=== PATIENT | female | born 1975 ===

== ENCOUNTER 2020-06-22 09:35 | Inpatient (IN) | payer MEDICAID ==
[~2020-06-22] VITALS: Ht 170.2 cm; Wt 89.0 kg
--- NOTE | 2020-06-22 10:01 | NUR ---
THIS IS A 45 YR OPLD FEMALE BEING TRANSFERED FROM [facility] FOR ELEVATED TROP ON A COVID POS PT. PT HAD COVID POS TEST IN LATE APRIL PT WENT INTO THEIR FACILITY TO DETOX FROM ETOH. 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 PT HX OF HTN AND ETOH ABUSE AND LIVER CIRRHOSIS.
[2020-06-22] MEDS ORDERED: ONDANSETRON 2MG/ML, 2ML ONE (10:15)
[2020-06-22] MEDS ORDERED: LORazepam 2 MG/ML, 1ML ONE (10:16)
--- NOTE | 2020-06-22 10:22 | NUR ---
X RAY IN ROOM. PT BEGINS TO VOMIT AND HR GOES UP TO 140'S. PROVIDER MADE AWARE. MEICATION ORDER RECIEVED. PT HAD APPROX 60 CC OF BLOOD TINGED EMISIS. PT MEDICATED PER ORDER, HEAD OF BED ELEVATED, CALL LIGHT IN REACH.
[2020-06-22] MEDS ORDERED: ONDANSETRON 2MG/ML, 2ML IVPush ONE (10:30)
[2020-06-22] MEDS ORDERED: LORazepam 2 MG/ML, 1ML IVPush ONE (10:30)
[2020-06-22 10:39] LABS: MEAN CORPUSCULAR HEMOGLOBIN 32.8 pg (27.0-34.8); MEAN CORPUSCULAR HGB CONC 33.6 g/dL (32.4-35.8); MEAN PLATELET VOLUME 9.4 fL (7.4-10.4); RED CELL DISTRIBUTION WIDTH 18.4 % (9.6-15.2)
[2020-06-22 10:57] LABS: PLATELET COUNT 20 x10^3/uL (130-400)
[2020-06-22 10:58] LABS: MD YES
[2020-06-22 10:59] LABS: D-DIMER (DIC) 1.81 ug/mlFEU (0.00-0.52); PROTIME 16.4 Seconds (9.6-11.5)
[2020-06-22 11:07] LABS: BASOS#(MANUAL) 0.02 x10^3/uL (0-0.1); BASOS% (MANUAL) 1 % (0-1); EOS#(MANUAL) 0.07 x10^3/uL (0.0-0.4); EOS% (MANUAL) 3 % (1-7); LYMPH#(MANUAL) 0.59 x10^3/uL (1-3.4); LYMPHS% (MANUAL) 27 % (22-44); MONOS#(MANUAL) 0.18 x10^3/uL (0.3-2.7); MONOS% (MANUAL) 8 % (2-9); SEG#(MANUAL) 1.34 x10^3/uL (1.8-6.8); SEGS% (MANUAL) 61 % (42-75)
[2020-06-22 11:08] LABS: <PLATELET ESTIMATE> DECREASED; <PLT MORPHOLOGY> NORMAL PLT MORPH; ANISOCYTOSIS 1+
[2020-06-22 11:38] LABS: ALBUMIN 2.3 g/dL (3.4-5.0); ANION GAP 8 mmol/L (5-15); CALCIUM 7.8 mg/dL (8.5-10.1); CHLORIDE 110 mmol/L (98-107)
[2020-06-22 11:43] LABS: ALANINE AMINOTRANSFERASE 39 U/L (12-78); ALKALINE PHOSPHATASE 106 U/L (45-117); BILIRUBIN,TOTAL 5.2 mg/dL (0.2-1.0); C-REACTIVE PROTEIN, QUANT 0.26 mg/dL (0.02-0.49); CREATININE 0.43 mg/dL (0.55-1.02); TOTAL PROTEIN 7.4 g/dL (6.4-8.2); TROPONIN I 0.073 ng/mL (0.000-0.045)
[2020-06-22] MEDS ORDERED: ENALAPRILAT 1.25 MG/ML, 2ML IVPush PRN (12:30)
[2020-06-22] MEDS ORDERED: BISACODYL 10 MG SUPP PR PRN (12:30)
[2020-06-22] MEDS ORDERED: OXYcodone IR 5MG TABLET PO PRN (12:30)
[2020-06-22] MEDS ORDERED: LABETALOL 5MG/ML, 20ML IVPush PRN (12:30)
[2020-06-22] MEDS ORDERED: POLYETHYLENE GLYCOL 17 GM PACKET PO PRN (12:30)
[2020-06-22] MEDS ORDERED: ACETAMINOPHEN 325 MG TABLET PO PRN (12:30)
[2020-06-22] MEDS ORDERED: POTASSIUM CHLORIDE 20 MEQ, MAGNESIUM SULFATE 2 GM, THIAMINE 200 MG, MVI ADULT 10 ML, FO... IV SCH (12:30)
--- NOTE | 2020-06-22 12:34 | NUR ---
MEDICATION REQUESTED FROM PHARMACY
--- NOTE | 2020-06-22 12:41 | NUR ---
PT RESTING COMFORTABLY IN BED AT THIS TIME. VSS. NO OTHER INCIDENTS OF VOMITING.
[2020-06-22 12:54] LABS: INTERNATIONAL NORMALIZED RATIO 1.57 (0.93-1.1); PROTHROMBIN TIME 16.6 Seconds (9.6-11.5)
[2020-06-22 12:57] LABS: BILIRUBIN, DIRECT 3.8 mg/dL (0.1-0.2)
[2020-06-22 12:58] LABS: BILIRUBIN,INDIRECT 1.2 mg/dL (0.0-2.0)
[2020-06-22] MEDS ORDERED: MAGNESIUM SULFATE PMX 4GM/100M 100 ML IVPB ONE (14:00)
[2020-06-22] MEDS: ONDANSETRON 2MG/ML, 2ML IVPush PRN (17:45)
[2020-06-22] MEDS: LORazepam 2 MG/ML, 1ML IVPush PRN (18:10)
[2020-06-22 19:04] VITALS: BP 159/80
[2020-06-22 20:01] VITALS: BP 168/78
[2020-06-23 00:47] VITALS: BP 168/88
[2020-06-23] MEDS: LORazepam 2 MG/ML, 1ML IVPush PRN (03:32)
[2020-06-23 05:36] LABS: ALBUMIN 2.1 g/dL (3.4-5.0); ANION GAP 5 mmol/L (5-15); CALCIUM 6.6 mg/dL (8.5-10.1); CHLORIDE 109 mmol/L (98-107); MEAN CORPUSCULAR HEMOGLOBIN 33.2 pg (27.0-34.8); MEAN CORPUSCULAR HGB CONC 33.4 g/dL (32.4-35.8); MEAN PLATELET VOLUME 10.7 fL (7.4-10.4); RED BLOOD COUNT 3.47 x10^6/uL (3.82-5.3); RED CELL DISTRIBUTION WIDTH 18.5 % (9.6-15.2)
[2020-06-23 05:42] LABS: ALANINE AMINOTRANSFERASE 36 U/L (12-78); ALKALINE PHOSPHATASE 96 U/L (45-117); BILIRUBIN,TOTAL 5.4 mg/dL (0.2-1.0); CREATININE 0.44 mg/dL (0.55-1.02); TROPONIN I 0.051 ng/mL (0.000-0.045)
[2020-06-23 05:57] LABS: PLATELET COUNT 36 x10^3/uL (130-400)
[2020-06-23 06:09] LABS: MD YES
[2020-06-23 06:12] LABS: BASOS#(MANUAL) 0.05 x10^3/uL (0-0.1); BASOS% (MANUAL) 2 % (0-1); EOS#(MANUAL) 0.08 x10^3/uL (0.0-0.4); EOS% (MANUAL) 3 % (1-7); LYMPH#(MANUAL) 0.53 x10^3/uL (1-3.4); LYMPHS% (MANUAL) 21 % (22-44); MONOS#(MANUAL) 0.15 x10^3/uL (0.3-2.7); MONOS% (MANUAL) 6 % (2-9); REACTIVE LYMPHS # (MANUAL) 0.03 x10^3/uL (0-0); REACTIVE LYMPHS % (MANUAL) 1 % (0-0); SEG#(MANUAL) 1.68 x10^3/uL (1.8-6.8); SEGS% (MANUAL) 67 % (42-75)
[2020-06-23 06:13] LABS: <PLATELET ESTIMATE> DECREASED; <PLT MORPHOLOGY> NORMAL PLT MORPH; <RBC MORPHOLOGY> NORMAL
[2020-06-23 07:15] VITALS: BP 157/85
[2020-06-23] MEDS ORDERED: PANTOPRAZOLE 40 MG IV IVPush SCH (07:30)
[2020-06-23] MEDS ORDERED: ACETAMINOPHEN 325 MG TABLET PO PRN (08:30)
[2020-06-23] MEDS: SENNA/DOCUSATE TABLET PO SCH ×2 (09:25→09:28)
[2020-06-23] MEDS: LACTOBACILLUS CHEW TABLET PO SCH ×3 (09:25→19:33)
[2020-06-23] MEDS: NS + 40MEQ KCL 1,000 ML IV SCH (09:26)
[2020-06-23] MEDS: CARVEDILOL 6.25 MG TABLET PO SCH ×2 (09:26→17:47)
[2020-06-23] MEDS ORDERED: LORazepam 1MG TABLET PO PRN ×4 (10:00)
[2020-06-23] MEDS ORDERED: LORazepam 2 MG/ML, 1ML IV PRN ×4 (10:00)
[2020-06-23] MEDS ORDERED: LORazepam 0.5MG TABLET PO PRN (10:00)
[2020-06-23 12:20] VITALS: BP 151/82
[2020-06-23 18:47] VITALS: BP 152/80
[2020-06-23] MEDS: ONDANSETRON 2MG/ML, 2ML IVPush PRN (19:32)
[2020-06-23] MEDS: LORazepam 2 MG/ML, 1ML IV PRN (19:32)
[2020-06-24 01:44] VITALS: BP 168/98
[2020-06-24] MEDS: NS + 40MEQ KCL 1,000 ML IV SCH (02:03)
[2020-06-24] MEDS: LORazepam 2 MG/ML, 1ML IV PRN (02:11)
[2020-06-24 05:45] VITALS: BP 157/85
[2020-06-24] MEDS: CARVEDILOL 6.25 MG TABLET PO SCH ×2 (05:46→18:35)
[2020-06-24 06:16] LABS: CHLORIDE 105 mmol/L (98-107)
[2020-06-24 06:26] LABS: % IRON SATURATION 86 % (20-55); ANION GAP 7 mmol/L (5-15); CALCIUM 6.8 mg/dL (8.5-10.1); CREATININE 0.48 mg/dL (0.55-1.02); IRON LEVEL 190 mcg/dL (50-170); TOTAL IRON BINDING CAPACITY 221 mcg/dL (250-450)
[2020-06-24 07:08] VITALS: BP 138/83
[2020-06-24] MEDS: SENNA/DOCUSATE TABLET PO SCH (09:00)
[2020-06-24] MEDS: LACTOBACILLUS CHEW TABLET PO SCH ×3 (10:46→21:11)
[2020-06-24] MEDS: CALCIUM/VITAMIN D3 250-125 TABLET PO SCH ×2 (10:46→21:11)
[2020-06-24] MEDS: SODIUM CHLORIDE 0.9% 1,000 ML IV SCH (10:47)
[2020-06-24 12:12] VITALS: BP 125/68
[2020-06-24 20:16] VITALS: BP 126/72
[2020-06-25 00:40] VITALS: BP 139/80
[2020-06-25] MEDS: SODIUM CHLORIDE 0.9% 1,000 ML IV SCH (03:30)
[2020-06-25] MEDS: CARVEDILOL 6.25 MG TABLET PO SCH (05:23)
[2020-06-25 06:36] VITALS: BP 131/81
[2020-06-25] MEDS ORDERED: SENNA/DOCUSATE TABLET PO PRN (08:00)
[2020-06-25] MEDS ORDERED: ACID1TAB7 PO (08:58)
[2020-06-25] MEDS ORDERED: CALC1TAB68 PO (08:58)
[2020-06-25] MEDS ORDERED: CARV6.2512 PO (08:58)
[2020-06-25] MEDS: LACTOBACILLUS CHEW TABLET PO SCH (08:59)
[2020-06-25] MEDS: CALCIUM/VITAMIN D3 250-125 TABLET PO SCH (08:59)
== END 2020-06-25 12:47 | disposition home or self-care (01) | DRG 775 ==
LOC: ED 11:46 → EDIP 12:43 → 4EST 17:02
PROVIDERS: ADMIT Internal Medicine; ATTEND Internal Medicine
DX: F10.239 Alcohol dependence with withdrawal, unspecified (principal); D69.59 Other secondary thrombocytopenia; E83.51 Hypocalcemia; E83.42 Hypomagnesemia; D61.818 Other pancytopenia; K70.30 Alcoholic cirrhosis of liver without ascites; G47.30 Sleep apnea, unspecified; I10 Essential (primary) hypertension; E87.6 Hypokalemia; Y90.8 Blood alcohol level of 240 mg/100 ml or more; Z20.828 Contact with and (suspected) exposure to other viral communicable diseases; D68.4 Acquired coagulation factor deficiency; F10.229 Alcohol dependence with intoxication, unspecified
CPT/HCPCS: 36415; 71045; 76700; 80048; 80053; 80320; 82140; 82247; 82248; 82330; 82728; 83540; 83550; 83605; 83615; 83690; 83735; 83880; 84100; 84145; 84425; 84484; 85025; 85049; 85379; 85384; 85610; 85730; 86140; 87040; 93005; 99285; G0378; J2405; J3411; J3475; J3480; J7042; C9113; G0480; J2060; J7030; U0003